=== PATIENT | female | born 1985 | race African-American/Black ===

== ENCOUNTER 2017-08-11 07:17 | Emergency (ER) | payer MEDICAID ==
[~2017-08-11] VITALS: Ht 167.6 cm; Wt 67.0 kg
[2017-08-11] MEDS ORDERED: SODIUM CHLORIDE 0.9% 1,000 ML IV ONE (08:30)
[2017-08-11] MEDS ORDERED: KETOROLAC 30MG/ML VIAL IV ONE (08:30)
[2017-08-11] MEDS ORDERED: ONDANSETRON HCL 4MG/2ML VIAL IV ONE (08:30)
[2017-08-11 08:52] LABS: BASOPHILS % 0.5 % (0.0-2.0); EOSINOPHILS % 0.3 % (0.0-5.0); HEMATOCRIT. 41.6 % (36.0-48.0); HEMOGLOBIN. 14.2 g/dL (12.0-16.0); LYMPHOCYTES % 23.7 % (20.0-50.0); MEAN CORPUSCULAR HEMOGLOBIN 27.9 pg (28.0-32.0); MEAN CORPUSCULAR VOLUME 81.8 fL (81.0-99.0); MEAN PLATELET VOLUME 7.7 fl (7.4-10.4); MONOCYTES % 6.6 % (2.0-8.0); NEUTROPHILS % 68.9 % (40.0-76.0); PLATELET 324 x1000/uL (130-400); RED BLOOD CELL COUNT 5.08 mill/uL (4.2-5.4); RED CELL DISTRIBUTION WIDTH 13.4 % (11.6-14.6)
[2017-08-11 08:59] LABS: CHLORIDE 108 mEq/L (98-107)
[2017-08-11 09:07] VITALS: BP 131/72
[2017-08-11 09:28] LABS: CLARITY URINE CLEAR (CLEAR); COLOR URINE YELLOW (YELLOW); KETONES URINE 1+ (NEGATIVE); LEUKOCYTE ESTERASE URINE 1+ (NEGATIVE); NITRITE URINE NEGATIVE (NEGATIVE); OCCULT BLOOD URINE 2+ (NEGATIVE); PH URINE 8.5 (4.5-8.0); PROTEIN URINE NEGATIVE (NEGATIVE); SPECIFIC GRAVITY URINE 1.016 (1.005-1.030)
[2017-08-11] MEDS ORDERED: METRONIDAZOLE 500MG TABLET PO ONE ×2 (10:30→10:45)
[2017-08-11] MEDS ORDERED: CEFTRIAXONE SODIUM 250 MG/VIAL IM ONE (10:30)
[2017-08-11] MEDS ORDERED: AZITHROMYCIN 500 MG TABLET PO SCH (10:30)
[2017-08-11] MEDS ORDERED: ONDANSETRON 4MG ODT PO ONE (11:15)
== END 2017-08-11 11:26 | disposition home or self-care (01) ==
LOC: ER 07:40
DX: A59.01 Trichomonal vulvovaginitis (principal); N39.0 Urinary tract infection, site not specified; F12.10 Cannabis abuse, uncomplicated
CPT/HCPCS: 36415; 74176; 80053; 81003; 81025; 85025; 96361; 96372; 96374; 96375; 99285; J0696; J1885; J2405; J7030; Q0162; Z7610